=== PATIENT | male | born 1950 | race Caucasian/White ===

== ENCOUNTER 2019-05-22 15:15 | Outpatient (RCR) | payer MEDICARE, BC | END 2019-07-04 | disposition home or self-care (01) | LOC: WSPT | DX: M54.42 Lumbago with sciatica, left side (principal) ==

== ENCOUNTER 2019-08-04 11:36 | Emergency (ER) | payer MEDICARE, BC ==
[~2019-08-04] VITALS: Ht 165.1 cm; Wt 111.4 kg
[2019-08-04 11:43] VITALS: TEMP 97.4
[2019-08-04] MEDS ORDERED: PRADAXA75 MG PO (11:56)
[2019-08-04] MEDS ORDERED: LIPITOR20 MG PO (11:56)
[2019-08-04] MEDS ORDERED: FLOMAX 0.40.4 MG/CAP PO (11:57)
[2019-08-04] MEDS ORDERED: NEURONTIN100 MG/CAP PO (11:57)
[2019-08-04] MEDS ORDERED: ZYLOPRIM 300MG300 MG PO (11:57)
[2019-08-04] MEDS ORDERED: CARDIZEM CD 24240 MG PO (11:57)
[2019-08-04 12:00] LABS: BASO % 0.5 % (0.0-2.0); EOS # 0.2 (0.0-0.7); EOS % 2.2 % (0-4.0); GRAN # 5.2 (1.4-6.5); GRAN % 59.9 % (42.2-75.2); HEMATOCRIT 45.5 % (42.0-52.0); LYMPH # 2.5 (1.2-3.4); LYMPH % 28.4 % (20.0-51.0); MEAN CELL VOLUME 94 fl (80.0-100.0); MEAN CORPUSCULAR HEMOGLOBIN 31 pg (27.0-31.0); MEAN CORPUSCULAR HGB CONC 33 g/dl (33.0-37.0); MEAN PLATELET VOLUME 10.2 fl (7.4-10.4); MONO # 0.8 (0.1-0.6); MONO % 8.8 % (1.7-9.3); PLATELET COUNT 254 K/mm3 (130-400); PROTHROMBIN TIME 11.9 SECONDS (9.7-12.8); RED BLOOD COUNT 4.85 M/mm3 (4.20-5.60); REDCELL DISTRIBUTION WIDTH-CV 14.4 % (11.5-14.5)
[2019-08-04 12:03] LABS: PARTIAL THROMBOPLASTIN TIME 39.6 SECONDS (26.0-37.0)
[2019-08-04 12:10] LABS: ALBUMIN 4.4 gm/dL (3.5-5.0); BILIRUBIN,TOTAL 0.6 mg/dL (0.0-1.0); C-REACTIVE PROTEIN 1.6 mg/dL (0.0-0.9); CALCIUM 9.7 mg/dL (8.4-10.2); CREATININE, serum 1.09 (0.66-1.25); MAGNESIUM 2.1 mg/dL (1.6-2.3); POTASSIUM 4.4 mmol/L (3.4-5.0); TOTAL PROTEIN 7.7 gm/dL (6.4-8.2)
[2019-08-04 12:36] LABS: TROPONIN-I < 0.012 ng/mL (0.000-0.035)
[2019-08-04] MEDS ORDERED: VITAMIN D 400400 IU PO (12:40)
[2019-08-04] MEDS ORDERED: MINOCYCLIN100 MG/CAP PO (12:44)
[2019-08-04 15:00] VITALS: BP 124/94; PULSE 73
[2019-08-04] MEDS ORDERED: NORCO 325 MG-51 TAB PO (15:00)
== END 2019-08-04 15:30 | disposition home or self-care (01) ==
LOC: COL.ER 11:36
PROVIDERS: Emergency Medicine
DX: I48.91 Unspecified atrial fibrillation (principal); I10 Essential (primary) hypertension
CPT/HCPCS: J3010

== ENCOUNTER → 2019-08-23 | Outpatient (CLI) | payer MEDICARE, BC ==
[~2019-08-23] MED LIST: CARDIZEM CD 24240 MG PO; FLOMAX 0.40.4 MG/CAP PO; LIPITOR20 MG PO; MINOCYCLIN100 MG/CAP PO; NEURONTIN100 MG/CAP PO; NORCO 325 MG-51 TAB PO; PRADAXA75 MG PO; VITAMIN D 400400 IU PO; ZYLOPRIM 300MG300 MG PO
== END ==
LOC: COL.VAS 07:43
DX: I67.82 Cerebral ischemia (principal); Z86.73 Personal history of transient ischemic attack (TIA), and cerebral infarction without residual deficits; R47.01 Aphasia
CPT/HCPCS: A9585